=== PATIENT | male | born 1945 | race Caucasian/White ===

== ENCOUNTER → 2016-09-07 | Outpatient (CLI) | payer OTHER ==
[2016-09-07 12:46] LABS: HEMOGLOBIN 14.3 gm/dl (14.0-17.5); RED BLOOD COUNT 4.74 M/UL (4.20-5.50); WHITE BLOOD COUNT 7.4 K/UL (4.5-11.0)
[2016-09-07 13:10] LABS: BUN/CREATININE RATIO 25 (0-10)
== END ==
LOC: LAB 11:41
PROVIDERS: Emergency Medicine
DX: I25.10 Atherosclerotic heart disease of native coronary artery without angina pectoris (principal); R10.32 Left lower quadrant pain; E11.9 Type 2 diabetes mellitus without complications; I10 Essential (primary) hypertension; M51.36 Other intervertebral disc degeneration, lumbar region
CPT/HCPCS: 36415; 80053; 82150; 83690; 85027

== ENCOUNTER → 2016-09-08 | Outpatient (CLI) | payer OTHER | LOC: CT 10:22 | DX: R10.32 Left lower quadrant pain (principal); K57.30 Diverticulosis of large intestine without perforation or abscess without bleeding | CPT/HCPCS: J7050; Q9962 ==

== ENCOUNTER 2020-08-12 09:35 | Inpatient (IN) | payer MEDICARE ==
[~2020-08-12] VITALS: Ht 177.8 cm; Wt 90.3 kg
[~2020-08-12 09:35] MED LIST: ALLOPURINOL300 MG PO; ASPIRIN EC81 MG PO; CARDURA8 MG PO; CRESTOR10 MG PO; CYMBALTA60 MG PO; GLUCOPHAGE XR500 MG PO; ISOSORBIDE MONO30 MG PO; METOPROLOL SUC100 MG PO; NAPRELAN500 MG PO; NITROSTAT0.4 MG SL; TRESIBA100 UNIT/1 SQ; VENTOLIN HFA 66.7 GM INH; VISTARIL25 MG PO
[2020-08-12 11:32] LABS: HEMOGLOBIN 13.6 gm/dl (14.0-17.5); RED BLOOD COUNT 4.36 M/UL (4.20-5.50); WHITE BLOOD COUNT 6.1 K/UL (4.5-11.0)
[2020-08-12 12:02] LABS: BUN/CREATININE RATIO 17 (0-10)
[2020-08-12] MEDS ORDERED: TOPROL XL50 MG PO (13:39)
[2020-08-12] MEDS ORDERED: OZEMPIC1 MG/0.71 SC (13:39)
[2020-08-12] MEDS ORDERED: ZESTRIL 40 MG T40 MG PO (13:40)
[2020-08-12] MEDS ORDERED: TOPROL XL25 MG PO (13:40)
[2020-08-12] MEDS ORDERED: AMLODIPINE BESYL5 MG PO (13:41)
[2020-08-12] MEDS ORDERED: MOBIC15 MG PO (13:41)
[2020-08-12] MEDS ORDERED: CYANOCOBAL1000 MCG/1 INJ (13:42)
[2020-08-12] MEDS ORDERED: TOUJEO MAX300 UNIT/1 SC (13:42)
[2020-08-12] MEDS ORDERED: VITAMIN D21250 MCG PO (13:42)
[2020-08-12] MEDS ORDERED: NIACIN CR 500500 MG PO (13:43)
[2020-08-13 03:37] LABS: HEMOGLOBIN 12.7 gm/dl (14.0-17.5); RED BLOOD COUNT 4.1 M/UL (4.20-5.50); WHITE BLOOD COUNT 6.4 K/UL (4.5-11.0)
[2020-08-13 04:05] LABS: BUN/CREATININE RATIO 12 (0-10)
[2020-08-14 04:46] LABS: BUN/CREATININE RATIO 12 (0-10)
[2020-08-14] MEDS ORDERED: ZYVOX600 MG PO (16:39)
[2020-08-14] MEDS ORDERED: AUGMENTIN 875-1 EACH PO (16:39)
[2020-08-14] MEDS ORDERED: HYDROCODON-ACE1 EAC4 PO (16:44)
--- NOTE | 2020-08-14 17:11 | NUR ---
PATIENT REFUSED HOME HEALTH CONSULT. LEFT VOICEMAIL WITH JOSE ALEJANDRO AT CASE MANAGMENT.
== END 2020-08-14 17:48 | disposition home or self-care (01) | DRG 638 ==
LOC: ER1 09:35 → MED SURG 4 13:02 → CDU 13:02 → MED SURG 4 15:47
PROVIDERS: Emergency Medicine; Physician Assistant; ADMIT Internal Medicine
DX: E11.69 Type 2 diabetes mellitus with other specified complication (principal); M86.9 Osteomyelitis, unspecified; L03.012 Cellulitis of left finger; M10.9 Gout, unspecified; G56.21 Lesion of ulnar nerve, right upper limb; E11.628 Type 2 diabetes mellitus with other skin complications; Z20.822 Contact with and (suspected) exposure to COVID-19; E11.622 Type 2 diabetes mellitus with other skin ulcer; E78.5 Hyperlipidemia, unspecified; I10 Essential (primary) hypertension; M19.042 Primary osteoarthritis, left hand; M19.041 Primary osteoarthritis, right hand; L98.499 Non-pressure chronic ulcer of skin of other sites with unspecified severity; J60 Coalworker's pneumoconiosis; Z95.1 Presence of aortocoronary bypass graft; Z90.49 Acquired absence of other specified parts of digestive tract
CPT/HCPCS: 36415; 73130; 80048; 80053; 80202; 82962; 85025; 85652; 86140; 87040; 93005; 96374; 97110; 97166; 99284; J2543; J3370; J7070; U0002

== ENCOUNTER → 2020-08-27 | Outpatient (CLI) | payer MEDICARE ==
[~2020-08-27] MED LIST changes: +AMLODIPINE BESYL5 MG PO; +AUGMENTIN 875-1 EACH PO; +CYANOCOBAL1000 MCG/1 INJ; +HYDROCODON-ACE1 EAC4 PO; +MOBIC15 MG PO; +NIACIN CR 500500 MG PO; +OZEMPIC1 MG/0.71 SC; +TOPROL XL25 MG PO; +TOPROL XL50 MG PO; +TOUJEO MAX300 UNIT/1 SC; +VITAMIN D21250 MCG PO; +ZESTRIL 40 MG T40 MG PO; +ZYVOX600 MG PO
== END ==
LOC: OPSV 12:30
DX: R22.32 Localized swelling, mass and lump, left upper limb (principal); L08.9 Local infection of the skin and subcutaneous tissue, unspecified
CPT/HCPCS: G0463

== ENCOUNTER → 2020-12-31 | Outpatient (CLI) | payer MEDICARE | LOC: RAD 17:10 | DX: M19.022 Primary osteoarthritis, left elbow (principal); M25.522 Pain in left elbow | CPT/HCPCS: 73080 ==

== ENCOUNTER → 2021-01-28 | Outpatient (CLI) | payer MEDICARE | LOC: EXRD 13:54 | DX: N17.9 Acute kidney failure, unspecified (principal) | CPT/HCPCS: 76775 ==

== ENCOUNTER → 2021-06-30 | Outpatient (CLI) | payer MEDICARE | LOC: KOH-I 11:49 | DX: M47.27 Other spondylosis with radiculopathy, lumbosacral region (principal); S33.140A Subluxation of L4/L5 lumbar vertebra, initial encounter | CPT/HCPCS: 72100 ==

== ENCOUNTER → 2021-07-17 | Outpatient (CLI) | payer MEDICARE | LOC: EMI 07-16 11:15 | DX: M47.26 Other spondylosis with radiculopathy, lumbar region (principal); M48.061 Spinal stenosis, lumbar region without neurogenic claudication | CPT/HCPCS: 72148 ==

== ENCOUNTER → 2021-12-10 | Outpatient (CLI) | payer MEDICARE | LOC: EXRD 11:10 | DX: R07.81 Pleurodynia (principal); W19.XXXA Unspecified fall, initial encounter | CPT/HCPCS: 71101 ==